=== PATIENT | female | born 1940 | race Caucasian/White ===

== ENCOUNTER 2019-01-03 08:11 | Day surgery (SDC) | payer MEDICARE ==
[2019-01-03] MEDS ORDERED: Atenolol TAB* 50 MG ONE (09:11)
[2019-01-03] MEDS ORDERED: Midazolam* 1 MG/ML 5 ML VIAL (5 MG) ONE (10:12)
[2019-01-03] MEDS ORDERED: Neomycin/Polymy/Dex OPTH.SUSP* MAXITROL 0.1% 5 ML ONE (12:56)
[2019-01-03] MEDS ORDERED: Lidocaine 2% w/ EPI 1:200,000* 20 ML SDV VIAL ONE (12:56)
[2019-01-03] MEDS ORDERED: Cyclopentolate 1% OPTH.SOL* 2 ML BTL ONE (12:56)
[2019-01-03] MEDS ORDERED: Phenylephrine OPHTH SOL 2.5%* 2 ML ONE (12:56)
[2019-01-03] MEDS ORDERED: acetaZOLAMIDE TAB* 250 MG ONE (12:56)
[2019-01-03] MEDS ORDERED: Lidocaine 1% MPF ** 5 ML VIAL ONE (12:56)
[2019-01-03] MEDS ORDERED: Proparacaine 0.5% OPHTH.SOL* 15 ML BTL ONE (12:57)
[2019-01-03] MEDS ORDERED: Ketorolac 0.5% OPHTH (NF) 0.5 % 5 ML BTL ONE (12:57)
[2019-01-03] MEDS ORDERED: Povidone Iodine 5% OPTH* 30 ML BTL ONE (12:57)
--- NOTE | 2019-01-03 15:56 | OP ---
DATE OF OPERATION: 01/03/19 - [facility] DATE OF : 38 SURGEON: Jeff Cardona M.D. PREOPERATIVE DIAGNOSIS: Cataract, left eye. POSTOPERATIVE DIAGNOSIS: Cataract, left eye. OPERATIVE PROCEDURE: Extracapsular cataract extraction with intraocular lens implant left eye. DESCRIPTION OF PROCEDURE: The patient was brought to the operating room after being given 1/2% Alcaine with epinephrine drops in the preoperative area. The eye was prepped and draped in the usual sterile fashion. Sterile drape and eyelid speculum were placed. Again, topical 1/2% Alcaine with epinephrine was given. A paracentesis incision was made at the 3 o'clock position with the No. 75 blade. Clear cornea incision 2.2 x 2.2-mm was created at the 6 o'clock position starting at the anterior limbus using the 2.2-mm keratome. The anterior chamber was irrigated with 0.4 mL of 1% non-preservative intracameral lidocaine and filled with DisCoVisc. A capsulorrhexis was completed using the cystotome and the Utrata forceps. Hydrodissection was performed with balanced salt solution. The lens nucleus was removed with the Phacoemulsification handpiece without incident. Cortex was removed with the irrigation-aspiration handpiece. The capsular bag was re-inflated using DisCoVisc and an [id number] 19.5 implant was inserted with the shooter oriented to the 175 degree meridian. Horizontal reference pritchard were made with the patient in a seated position in the preoperative area. All measurements were confirmed with the ORA. The irrigation-aspiration handpiece was used to remove all residual DisCoVisc. The eye was refilled with balanced salt solution and the wound checked and found to be watertight. Topical Maxitrol drops were given. [id number]/[facility] #: [id number] [facility]
[2019-01-09] MEDS ORDERED: Buffered Lidocaine 1% SYRIN* 1 ML/SYRINGE INTRADERM ONE (11:11)
[2019-01-10] MEDS ORDERED: Acetaminophen TAB* 325 MG PO PRN (05:00)
[2019-01-10 11:36] VITALS: BP 140/63
== END 2019-01-03 11:20 | disposition home or self-care (01) ==
LOC: OREAST 08:11
PROVIDERS: ATTEND Specialist
DX: H25.812 Combined forms of age-related cataract, left eye (principal); H43.813 Vitreous degeneration, bilateral; I10 Essential (primary) hypertension; M15.9 Polyosteoarthritis, unspecified; I69.320 Aphasia following cerebral infarction; Z79.82 Long term (current) use of aspirin
CPT/HCPCS: A9270-GY; J2250; V2632; V2787

== ENCOUNTER 2019-01-10 08:07 | Day surgery (SDC) | payer MEDICARE ==
[2019-01-03 11:24] VITALS: BP 138/60
[~2019-01-10 08:07] MED LIST: Acetaminophen TAB* 325 MG PO PRN; Buffered Lidocaine 1% SYRIN* 1 ML/SYRINGE INTRADERM ONE; Cyclopentolate 1% OPTH.SOL* 2 ML BTL ONE; Ketorolac 0.5% OPHTH (NF) 0.5 % 5 ML BTL ONE; Lidocaine 1% MPF ** 5 ML VIAL ONE; Lidocaine 2% w/ EPI 1:200,000* 20 ML SDV VIAL ONE; Neomycin/Polymy/Dex OPTH.SUSP* MAXITROL 0.1% 5 ML ONE; Phenylephrine OPHTH SOL 2.5%* 2 ML ONE; Povidone Iodine 5% OPTH* 30 ML BTL ONE; Proparacaine 0.5% OPHTH.SOL* 15 ML BTL ONE; acetaZOLAMIDE TAB* 250 MG ONE
[2019-01-10] MEDS ORDERED: Midazolam* 1 MG/ML 2 ML VIAL (2 MG) ONE (09:53)
--- NOTE | 2019-01-10 13:15 | OP ---
DATE OF OPERATION: 01/10/19 [facility] DATE OF : 38 SURGEON: Jeff Cardona M.D. PREOPERATIVE DIAGNOSIS: Cataract, right eye. POSTOPERATIVE DIAGNOSIS: Cataract, right eye. OPERATIVE PROCEDURE: Extracapsular cataract extraction with intraocular lens implant, right eye. DESCRIPTION OF PROCEDURE: The patient was brought to the operating room after being given 1/2% Alcaine with epinephrine drops in the preoperative area. The eye was prepped and draped in the usual sterile fashion. Sterile drape and eyelid speculum were placed. Again, topical 1/2% Alcaine with epinephrine was given. A paracentesis incision was made at the 9 o'clock position with the No.75 blade. Clear cornea incision 2.2 x 2.2-mm was created at the 12 o'clock position starting at the anterior limbus using the 2.2-mm keratome. The anterior chamber was irrigated with 0.4 mL of 1% non-preservative intracameral lidocaine and filled with DisCoVisc. A capsulorrhexis was completed using the cystotome and the Utrata forceps. Hydrodissection was performed with balanced salt solution. The lens nucleus was removed with the Phacoemulsification handpiece without incident. Cortex was removed with the irrigation-aspiration handpiece. The capsular bag was re-inflated using DisCoVisc and an [id number] 18.5 implant was inserted with the shooter. All measurements confirmed with ORA. The irrigation-aspiration handpiece was used to remove all residual DisCoVisc. The eye was refilled with balanced salt solution and the wound checked and found to be watertight. Topical Maxitrol drops were given. [id number]/[facility] #: [id number] [facility]
== END 2019-01-10 10:56 | disposition home or self-care (01) ==
LOC: OREAST 08:07
PROVIDERS: ATTEND Specialist
DX: H25.811 Combined forms of age-related cataract, right eye (principal); I10 Essential (primary) hypertension; M19.90 Unspecified osteoarthritis, unspecified site; E78.5 Hyperlipidemia, unspecified; I69.320 Aphasia following cerebral infarction; I69.310 Attention and concentration deficit following cerebral infarction; Z88.0 Allergy status to penicillin; Z88.1 Allergy status to other antibiotic agents
CPT/HCPCS: A9270-GY; J2250; V2632; V2787

== ENCOUNTER 2019-04-24 21:16 | Emergency (ER) | payer MEDICARE ==
--- NOTE | 2019-04-24 22:00 | ED ---
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 THIS IS A LEVEL 5 CAVEAT DUE TO PT's APHASIA. Patient was watching TV when she felt nausea, shortness of breath, and heart palpitations. Patient denies any pain, visual changes, unusual facial sensation , or current shortness of breath. Patient reports having similar symptoms last year in May during TIA episode. - History Of Current Complaint Chief Complaint: EDGeneral Stated Complaint: GENERAL ILLNESS PER EMS Time Seen by Provider: 04/24/19 21:49 Hx Obtained From: Patient Hx From Patient Unobtainable Due To: Other - Aphasia Onset/Duration: Unknown, Resolved, Gradually Timing: Constant Severity Initially: Moderate Severity Currently: Mild Character: Confusion Aggravating Factor(s): Unknown Alleviating Factor(s): Unknown Associated Signs And Symptoms: Positive: Nausea Related History: Similar Episode/Diagnosed As: - Last May, diagnosed as TIA. - Allergies/Home Medications Allergies/Adverse Reactions: Allergies Allergy/AdvReac Type Severity Reaction Status Date / Time Penicillins Allergy Unknown Hives Verified 01/10/19 08:21 doxycycline Allergy Nausea Verified 01/10/19 08:21 PMH/Surg Hx/FS Hx/Imm Hx Endocrine/Hematology History: Denies: Hx Bone Marrow Disease, Hx Diabetes, Hx Sickle Cell Disease, Hx Thyroid Disease, Hx Anemia Cardiovascular History: Reports: Hx Coronary Artery Disease - HDL-TAKES ATORVASTATIN, Hx Hypertension - ON MEDS Denies: Hx Pacemaker/ICD, Other Cardiovascular Problems/Disorders Respiratory History: Denies: Other Respiratory Problems/Disorders GI History: Denies: Hx Gastroesophageal Reflux Disease, Other GI Disorders History: Denies: Hx Kidney Infection, Hx Kidney Stones, Hx Renal Disease, Other Problems/Disorders Musculoskeletal History: Reports: Hx Arthritis - FINGERS AND SPINE Denies: Hx Bursitis, Hx Tendonitis, Other Musculoskeletal History Sensory History: Reports: Hx Cataracts - BILATERAL-SURGERY SCHEDULED, Hx Contacts or Glasses - GLASSES TO READ Denies: Hx Glaucoma, Hx Hearing Aid Opthamlomology History: Reports: Hx Cataracts - BILATERAL-SURGERY SCHEDULED, Hx Contacts or Glasses - GLASSES TO READ Denies: Hx Glaucoma Psychiatric History: Denies: Hx Panic Disorder - Cancer History Cancer Type, Location and Year: skin cancer, uterin ca Hx Chemotherapy: No Hx Radiation Therapy: No - Surgical History Surgery Procedure, Year, and Place: TUBALIGATION 1981,HYSTERECTOMY 2004,RIGHT BIOPSY, right shoulder squamous cell removed. SQUAMOUS CELL REMOVED DIFFERENT SPOTS ON BODY. Hx Anesthesia Reactions: No Infectious Disease History: No Infectious Disease History: Denies: Traveled Outside the [place] in Last 30 Days - Family History Known Family History: Positive: Other - CVA mother and grandmother - Social History Alcohol Use: None Substance Use Type: Reports: None Smoking Status (MU): Never Smoked Tobacco - Additional Comments History Additional Comments: PMHx: TIA Aphasia HTN Cataract surgery Tubal hysterectomy Squamous cells in right shoulder removed Skin cancer urinary cancer Review of Systems - ROS Summary Review of Systems Summary: Home Medications Medication Instructions Recorded Confirmed Type Acyclovir TAB* 400 mg PO QAM PRN 06/14/13 01/03/19 History Calcium Carbonate/Vitamin D3 1 tab PO QAM 06/14/13 01/03/19 History [Calcium 600 + Vit D Tablet] Losartan-Hctz 50-12.5 mg Tab 1 tab PO QAM 06/14/13 01/03/19 History Vitamin C TAB* 1 tab PO QAM 06/14/13 01/03/19 History atenoloL [Atenolol] 50 mg PO QAM 06/14/13 01/03/19 History Atorvastatin* [Lipitor 40 MG*] 40 mg PO 2100 #30 tab 06/04/18 01/03/19 Rx Aspirin TAB* [Aspirin 325 MG TAB*] 325 mg PO QAM 12/28/18 01/03/19 History Biotene 1,000 mg PO QAM 12/28/18 01/03/19 History Glucosamn/[place]/C/Mn/[place] 1 tab PO QAM 12/28/18 01/03/19 History [[facility] Glucosamine [place] Cplt] Lysine [l-Lysine] 500 mg pe PO QPM 12/28/18 01/03/19 History [place]-3 Fatty Acids/Fish Oil [Fish 1 each PO QAM 12/28/18 01/03/19 History Oil 1,000 mg Softgel] Vit A/Vit C/Vit E/Zinc/Copper 1 cap PO QAM 12/28/18 01/03/19 History [Vision Formula Softgel] Negative: Fever Negative: Blurred Vision Positive: Palpitations Positive: Shortness Of Breath Positive: Nausea Negative: Paresthesia, Numbness All Other Systems Reviewed And Are Negative: No Physical Exam - Summary Physical Exam Summary: General: Well-developed, Well-nourished elderly female. No acute distress. HEENT: Normocephalic, Atraumatic. Eyes: Conjuctiva normal, PERRL. Ears: TMs within normal limits. Nares: (-) discharge, (-) erythema. Oropharynx: Clear, mucous membranes moist, (-) exudates. Neck: Soft, FROM, (-) lymphadenopathy, (-) thyromegaly, (-) JVD. Cardiovascular: Normal sinus rhythm, (-) murmur. Lungs: Clear to auscultation bilaterally (-) wheezes, (-) rales, (-) rhonchi. Abdomen: Soft, non-tender, non-distended, (-) organomegaly, normal bowel sounds. Back: (-) CVA tenderness Extremities: No edema. Skin: Warm, dry, (-) rash. Neuro: Alert and oriented x3. Aphasic. Psychiatric: Mood normal, affect flat. Triage Information Reviewed: Yes Vital Signs On Initial Exam: Initial Vitals Temp Pulse Resp BP Pulse Ox 98 F 62 18 159/71 98 04/24/19 21:24 04/24/19 21:24 04/24/19 21:24 04/24/19 21:24 04/24/19 21:24 Vital Signs Reviewed: Yes Completion Of Physical Exam Limited Due To: Level 5 Procedures - Sedation Patient Received Moderate/Deep Sedation with Procedure: No Diagnostics - Vital Signs Vital Signs Temp Pulse Resp BP Pulse Ox 04/24/19 21:24 98 F 62 18 159/71 98 - Laboratory Result Diagrams: 04/24/19 22:59 04/24/19 22:59 Lab Statement: Any lab studies that have been ordered have been reviewed, and results considered in the medical decision making process. - Radiology CXR Radiology Interpretation Completed By: ED Physician Summary of Radiographic Findings: No infiltrate. No pleural effusion. Pending official read. Dr. Hull has reviewed and interpreted this scan. - EKG 0020 Cardiac Rate: NL - 69 bpm EKG Rhythm: Sinus Rhythm ST Segment: Normal Ectopy: None Summary of EKG Findings: EKG at 0020 reveals normal sinus rhythm with rate of 69 BPM, no acute changes, no ischemic changes. This EKG was reviewed and interpreted by Dr. Hull. Altered Mental Statu Course/Dx - Diagnoses Provider Diagnoses: Heart palpitations Discharge ED - Sign-Out/Discharge Documenting (check all that apply): Patient Departure - discharge home - Discharge Plan Condition: Stable Disposition: HOME Patient Education Materials: Heart Palpitations (ED) Referrals: Chriss Hendrickson MD [Primary Care Provider] - Additional Instructions: Follow up with your primary care provider in 2-3 days. Return to the Emergency Department if you experience new or worsened symptoms. - Attestation Statements Document Initiated by Scribe: Yes Documenting Scribe: Alonso Worthington Provider For Whom Scribe is Documenting (Include Credential): Carmen Hull MD Scribe Attestation: Alonso Cooper, scribed for Carmen Hull MD on 04/25/19 at 0118. Status of Scribe Document: Ready
[2019-04-24] MEDS ORDERED: NS 0.9% 1000 ML** 1,000 ML IV ONE (22:32)
[2019-04-24 23:05] LABS: ABS Basophils 0.1 10^3/ul (0-0.2); ABS Lymphocytes 1.1 10^3/ul (1.0-4.8); ABS Monocytes 0.5 10^3/ul (0-0.8); ABS Neutrophils 7.1 10^3/ul (1.5-7.7); Eosinophil % 0.6 %; Hematocrit 35 % (35-47); Lymphocyte % 12.2 %; Mean Corpuscular HGB Conc 34 g/dL (31-36); Mean Corpuscular Hemoglobin 32 pg (27-31); Mean Corpuscular Volume 94 fL (80-97); Mean Platelet Volume 9.3 fL (7.4-10.4); Platelet Count 155 10^3/uL (150-450); Red Blood Count 3.79 10^6 /uL (3.70-4.87); Red Cell Distribution Width 13 % (10-15); White Blood Count 8.8 10^3/uL (3.5-10.8)
[2019-04-24 23:20] LABS: Influenza A Molecular NEGATIVE (Negative); Influenza B Molecular NEGATIVE (Negative)
[2019-04-24 23:23] LABS: ALT 12 U/L (7-52); AST 19 U/L (13-39); Albumin 3.9 g/dL (3.2-5.2); Albumin/Globulin Ratio 1.6 (1-3); Alkaline Phosphatase 93 U/L (34-104); Anion Gap 6 mmol/L (2-11); BUN/Creatinine Ratio 29.2 (8-20); Blood Urea Nitrogen 21 mg/dL (6-24); C Reactive Protein < 1.00 mg/L (<8.01); CO2 Carbon Dioxide 30 mmol/L (22-32); Calcium 9.1 mg/dL (8.6-10.3); Chloride 100 mmol/L (101-111); EGFR African American 94.5 (>60); EGFR Non-African American 78.1 (>60); Globulin 2.5 g/dL (2-4); Glucose 165 mg/dL (70-100); Potassium 3.4 mmol/L (3.5-5.0); Sodium 136 mmol/L (135-145); Total Protein 6.4 g/dL (6.4-8.9)
[2019-04-25 00:22] LABS: Erythrocyte Sed Rate 8 mm/Hr (0-29)
[2019-04-25 00:44] LABS: Troponin I 0.01 ng/mL (<0.03)
[2019-04-25 01:06] LABS: Urine Appearance Cloudy; Urine Bilirubin Negative (Negative); Urine Blood Negative (Negative); Urine Color Yellow; Urine Glucose Negative (Negative); Urine Ketones Negative (Negative); Urine Nitrite Negative (Negative); Urine Protein Negative (Negative); Urine Specific Gravity 1.011 (1.010-1.030); Urine Urobilinogen Negative (Negative)
[2019-04-25 02:38] VITALS: BP 158/91
== END 2019-04-25 02:23 | disposition home or self-care (01) ==
LOC: ED 21:16
DX: R06.02 Shortness of breath (principal); R11.0 Nausea; I10 Essential (primary) hypertension; I25.10 Atherosclerotic heart disease of native coronary artery without angina pectoris; R47.01 Aphasia; Z85.828 Personal history of other malignant neoplasm of skin; Z86.73 Personal history of transient ischemic attack (TIA), and cerebral infarction without residual deficits
CPT/HCPCS: 36415; 71045; 80053; 81003; 83605; 84484; 85025; 85652; 86140; 93005; 96360; 99284

== ENCOUNTER 2020-03-11 00:03 | Observation (INO) ==
[2020-03-11 01:12] LABS: ABS Lymphocytes 1.1 10^3/ul (1.0-4.8); ABS Monocytes 0.7 10^3/ul (0-0.8); ABS Neutrophils 7.8 10^3/ul (1.5-7.7); Eosinophil % 0.5 %; Hematocrit 39 % (35-47); Hemoglobin 13.3 g/dL (12.0-16.0); Lymphocyte % 11.4 %; Mean Corpuscular HGB Conc 34 g/dL (31-36); Mean Corpuscular Hemoglobin 32 pg (27-31); Mean Corpuscular Volume 95 fL (80-97); Mean Platelet Volume 9.4 fL (7.4-10.4); Platelet Count 188 10^3/uL (150-450); Red Cell Distribution Width 13 % (10-15); White Blood Count 9.7 10^3/uL (3.5-10.8)
[2020-03-11 01:20] LABS: Albumin 4.3 g/dL (3.2-5.2); Calcium 9.6 mg/dL (8.6-10.3); Magnesium 1.7 mg/dL (1.9-2.7); Potassium 3.6 mmol/L (3.5-5.0); Total Bilirubin 0.7 mg/dL (0.2-1.0)
[2020-03-11 01:26] LABS: Albumin/Globulin Ratio 1.4 (1-3); BUN/Creatinine Ratio 23.3 (8-20); EGFR African American 76.8 (>60); EGFR Non-African American 63.5 (>60); Globulin 3.1 g/dL (2-4); Total Protein 7.4 g/dL (6.4-8.9)
[2020-03-11 01:48] LABS: TSH Ultra Thyroid Stim Horm 5.43 mcIU/mL (0.34-5.60)
[2020-03-11 02:59] LABS: Urine Appearance Clear; Urine Bilirubin Negative (Negative); Urine Blood Negative (Negative); Urine Color Yellow; Urine Glucose Negative (Negative); Urine Ketones Negative (Negative); Urine Nitrite Negative (Negative); Urine Protein Negative (Negative); Urine Specific Gravity 1.015 (1.010-1.030); Urine Urobilinogen Negative (Negative)
[2020-03-11 03:05] LABS: Urine Bacteria Absent (Absent); Urine Red Blood Cell Trace(0-2/hpf) (Absent); Urine Squamous Epithelial Cell Present (Absent); Urine White Blood Cell Trace(0-5/hpf) (Absent)
[2020-03-11] MEDS ORDERED: Magnesium Sulfate 2 gm BAG 2 GM/50 ML BAG IVPB ONE (03:25)
[2020-03-11] MEDS ORDERED: NS 0.9% 1000 ml BAG 1,000 ML IV SCH (03:30)
[2020-03-11] MEDS: Heparin 5000 UNITS/ML 1 mL VIAL SUBCUT SCH ×3 (11:05→21:37)
[2020-03-12] MEDS: Heparin 5000 UNITS/ML 1 mL VIAL SUBCUT SCH ×2 (07:28→15:14)
[2020-03-12 11:33] VITALS: BP 171/84
== END 2020-03-12 15:50 | disposition home or self-care (01) ==
LOC: MEDTELE 00:03 → ED 00:03 → MEDTELE 10:28
PROVIDERS: ADMIT Hospitalist; ATTEND Student in an Organized Health Care Education/Training Program

== ENCOUNTER 2020-03-21 20:20 | Inpatient (IN) ==
[2020-03-21] MEDS ORDERED: oxyCODONE/Acetamin 5/325 mg TAB PO ONE (21:13)
[2020-03-21 22:04] LABS: ABS Lymphocytes 0.9 10^3/ul (1.0-4.8); ABS Monocytes 0.6 10^3/ul (0-0.8); ABS Neutrophils 7.6 10^3/ul (1.5-7.7); Eosinophil % 0.3 %; Hematocrit 31 % (35-47); Hemoglobin 10.7 g/dL (12.0-16.0); Mean Corpuscular HGB Conc 35 g/dL (31-36); Mean Corpuscular Hemoglobin 33 pg (27-31); Mean Corpuscular Volume 94 fL (80-97); Mean Platelet Volume 8.9 fL (7.4-10.4); Platelet Count 198 10^3/uL (150-450); Red Blood Count 3.31 10^6 /uL (3.70-4.87); Red Cell Distribution Width 13 % (10-15); White Blood Count 9.1 10^3/uL (3.5-10.8)
[2020-03-21 22:11] LABS: INR 1.16 (0.82-1.09)
[2020-03-21 22:19] LABS: Albumin 3.8 g/dL (3.2-5.2); Albumin/Globulin Ratio 1.5 (1-3); BUN/Creatinine Ratio 27.3 (8-20); Calcium 9.2 mg/dL (8.6-10.3); EGFR African American 104.3 (>60); EGFR Non-African American 86.2 (>60); Globulin 2.6 g/dL (2-4); Potassium 3.9 mmol/L (3.5-5.0); Total Bilirubin 0.4 mg/dL (0.2-1.0); Total Protein 6.4 g/dL (6.4-8.9)
[2020-03-22] MEDS ORDERED: Morphine 2 MG/ML SYRINGE IV PRN (01:20)
[2020-03-22] MEDS ORDERED: Enoxaparin 40 MG/0.4 ML SYR SUBCUT SCH (02:00)
[2020-03-22] MEDS: Enoxaparin 40 MG/0.4 ML SYR SUBCUT SCH (09:47)
[2020-03-22] MEDS: oxyCODONE/Acetamin 5/325 mg TAB PO PRN (09:50)
[2020-03-22] MEDS: Calcium/Vitamin D TAB 250/125 TAB PO SCH (09:50)
[2020-03-22 18:09] LABS: Urine Appearance Cloudy; Urine Bilirubin Negative (Negative); Urine Blood Negative (Negative); Urine Color Yellow; Urine Glucose Negative (Negative); Urine Ketones Negative (Negative); Urine Nitrite Negative (Negative); Urine Protein Negative (Negative); Urine Specific Gravity 1.026 (1.010-1.030); Urine Urobilinogen Negative (Negative)
[2020-03-23 05:25] LABS: ABS Eosinophils 0.1 10^3/ul (0-0.6); ABS Monocytes 0.6 10^3/ul (0-0.8); Eosinophil % 0.9 %; Hematocrit 28 % (35-47); Hemoglobin 9.8 g/dL (12.0-16.0); Lymphocyte % 15.3 %; Mean Corpuscular HGB Conc 35 g/dL (31-36); Mean Corpuscular Hemoglobin 33 pg (27-31); Mean Corpuscular Volume 94 fL (80-97); Mean Platelet Volume 8.5 fL (7.4-10.4); Platelet Count 159 10^3/uL (150-450); Red Blood Count 2.98 10^6 /uL (3.70-4.87); Red Cell Distribution Width 13 % (10-15); White Blood Count 6.6 10^3/uL (3.5-10.8)
[2020-03-23 05:40] LABS: BUN/Creatinine Ratio 30.9 (8-20); Calcium 8.5 mg/dL (8.6-10.3); EGFR African American 128.7 (>60); EGFR Non-African American 106.3 (>60); Potassium 3.9 mmol/L (3.5-5.0)
[2020-03-23] MEDS: oxyCODONE/Acetamin 5/325 mg TAB PO PRN ×2 (09:20→21:00)
[2020-03-23] MEDS: Enoxaparin 40 MG/0.4 ML SYR SUBCUT SCH (09:21)
[2020-03-23] MEDS ORDERED: NS 0.9% 1000 ml BAG 1,000 ML IV SCH (10:45)
[2020-03-23 16:43] LABS: BUN/Creatinine Ratio 30.6 (8-20); Calcium 8.3 mg/dL (8.6-10.3); EGFR Non-African American 121.5 (>60)
[2020-03-24] MEDS: oxyCODONE/Acetamin 5/325 mg TAB PO PRN ×2 (03:30→23:59)
[2020-03-24] MEDS: Enoxaparin 40 MG/0.4 ML SYR SUBCUT SCH (08:37)
[2020-03-24] MEDS: Calcium/Vitamin D TAB 250/125 TAB PO SCH (08:39)
[2020-03-24] MEDS ORDERED: Magnesium Hydroxide LIQ 30 ML UDC PO PRN (12:39)
[2020-03-24 16:04] LABS: BUN/Creatinine Ratio 21.3 (8-20); Calcium 8.5 mg/dL (8.6-10.3); EGFR African American 154.3 (>60); EGFR Non-African American 127.5 (>60); Potassium 4.2 mmol/L (3.5-5.0)
[2020-03-25 05:57] LABS: ABS Eosinophils 0.1 10^3/ul (0-0.6); ABS Lymphocytes 1.2 10^3/ul (1.0-4.8); ABS Monocytes 0.5 10^3/ul (0-0.8); ABS Neutrophils 4.2 10^3/ul (1.5-7.7); Eosinophil % 1.6 %; Hematocrit 27 % (35-47); Hemoglobin 9.5 g/dL (12.0-16.0); Lymphocyte % 19.4 %; Mean Corpuscular HGB Conc 35 g/dL (31-36); Mean Corpuscular Hemoglobin 33 pg (27-31); Mean Corpuscular Volume 93 fL (80-97); Mean Platelet Volume 8.6 fL (7.4-10.4); Platelet Count 155 10^3/uL (150-450); Red Blood Count 2.88 10^6 /uL (3.70-4.87); Red Cell Distribution Width 13 % (10-15)
[2020-03-25 06:17] LABS: BUN/Creatinine Ratio 16.3 (8-20); Calcium 8.1 mg/dL (8.6-10.3); EGFR Non-African American 141.3 (>60); Potassium 4.2 mmol/L (3.5-5.0)
[2020-03-25] MEDS: Enoxaparin 40 MG/0.4 ML SYR SUBCUT SCH (10:09)
[2020-03-25] MEDS: Polyethylene Glycol 3350 17 GM PACKET PO SCH (10:09)
[2020-03-25] MEDS: oxyCODONE/Acetamin 5/325 mg TAB PO PRN (10:10)
[2020-03-25 16:46] LABS: BUN/Creatinine Ratio 19.6 (8-20); Calcium 8.4 mg/dL (8.6-10.3); EGFR African American 158.2 (>60); EGFR Non-African American 130.7 (>60); Potassium 3.9 mmol/L (3.5-5.0)
[2020-03-25 16:51] LABS: BUN/Creatinine Ratio 19.5 (8-20); Calcium 8.6 mg/dL (8.6-10.3); EGFR African American 180.6 (>60); EGFR Non-African American 149.3 (>60); Potassium 4.1 mmol/L (3.5-5.0)
[2020-03-25 21:10] LABS: BUN/Creatinine Ratio 20.8 (8-20); Calcium 8.4 mg/dL (8.6-10.3); EGFR African American 150.6 (>60); EGFR Non-African American 124.4 (>60); Potassium 4.3 mmol/L (3.5-5.0)
[2020-03-26 06:00] LABS: ABS Eosinophils 0.1 10^3/ul (0-0.6); ABS Lymphocytes 0.9 10^3/ul (1.0-4.8); ABS Monocytes 0.4 10^3/ul (0-0.8); ABS Neutrophils 3.6 10^3/ul (1.5-7.7); Eosinophil % 1.9 %; Hematocrit 27 % (35-47); Hemoglobin 9.4 g/dL (12.0-16.0); Lymphocyte % 17.9 %; Mean Corpuscular HGB Conc 35 g/dL (31-36); Mean Corpuscular Hemoglobin 32 pg (27-31); Mean Corpuscular Volume 93 fL (80-97); Mean Platelet Volume 8.7 fL (7.4-10.4); Nucleated Red Blood Cells % 0.1; Platelet Count 161 10^3/uL (150-450); Red Blood Count 2.91 10^6 /uL (3.70-4.87); Red Cell Distribution Width 13 % (10-15); White Blood Count 5.1 10^3/uL (3.5-10.8)
[2020-03-26 06:12] LABS: BUN/Creatinine Ratio 19.5 (8-20); Calcium 8.1 mg/dL (8.6-10.3); EGFR African American 180.6 (>60); EGFR Non-African American 149.3 (>60)
[2020-03-26 06:44] LABS: Potassium 4.2 mmol/L (3.5-5.0)
[2020-03-26] MEDS: Calcium/Vitamin D TAB 250/125 TAB PO SCH (07:39)
[2020-03-26] MEDS: Polyethylene Glycol 3350 17 GM PACKET PO SCH (07:41)
[2020-03-26] MEDS: Ondansetron 4 mg VIAL 2 MG/ML 2 ml VIAL IV PRN ×2 (11:47→21:06)
[2020-03-26] MEDS ORDERED: Al Hydrox/Mg Hydrox/Simet LIQ 30 ML UDC PO ONE (16:10)
[2020-03-26] MEDS: oxyCODONE/Acetamin 5/325 mg TAB PO PRN (20:46)
[2020-03-26] MEDS: Senna TAB 8.6 mg TAB PO PRN (20:48)
[2020-03-27 07:16] LABS: Calcium 8.2 mg/dL (8.6-10.3); Potassium 4.4 mmol/L (3.5-5.0)
[2020-03-27 07:22] LABS: EGFR African American 143.6 (>60); EGFR Non-African American 118.7 (>60)
[2020-03-27] MEDS: Polyethylene Glycol 3350 17 GM PACKET PO SCH (07:35)
[2020-03-27 07:39] LABS: TSH Ultra Thyroid Stim Horm 2.8 mcIU/mL (0.34-5.60)
[2020-03-27 08:23] LABS: ABS Eosinophils 0.1 10^3/ul (0-0.6); ABS Lymphocytes 0.8 10^3/ul (1.0-4.8); ABS Monocytes 0.4 10^3/ul (0-0.8); ABS Neutrophils 4.2 10^3/ul (1.5-7.7); Eosinophil % 1.4 %; Hematocrit 27 % (35-47); Hemoglobin 9.2 g/dL (12.0-16.0); Lymphocyte % 14.9 %; Mean Corpuscular HGB Conc 35 g/dL (31-36); Mean Corpuscular Hemoglobin 33 pg (27-31); Mean Corpuscular Volume 93 fL (80-97); Mean Platelet Volume 9.1 fL (7.4-10.4); Platelet Count 163 10^3/uL (150-450); Red Blood Count 2.84 10^6 /uL (3.70-4.87); Red Cell Distribution Width 13 % (10-15); White Blood Count 5.5 10^3/uL (3.5-10.8)
[2020-03-28] MEDS: Polyethylene Glycol 3350 17 GM PACKET PO SCH (09:15)
[2020-03-28] MEDS: Calcium/Vitamin D TAB 250/125 TAB PO SCH (09:15)
[2020-03-28] MEDS: Senna TAB 8.6 mg TAB PO PRN (22:00)
[2020-03-29 09:22] LABS: ABS Basophils 0.1 10^3/ul (0-0.2); ABS Eosinophils 0.1 10^3/ul (0-0.6); ABS Lymphocytes 0.9 10^3/ul (1.0-4.8); ABS Monocytes 0.4 10^3/ul (0-0.8); Eosinophil % 1.6 %; Hematocrit 30 % (35-47); Hemoglobin 10.2 g/dL (12.0-16.0); Lymphocyte % 16.7 %; Mean Corpuscular HGB Conc 34 g/dL (31-36); Mean Corpuscular Hemoglobin 32 pg (27-31); Mean Corpuscular Volume 94 fL (80-97); Mean Platelet Volume 7.9 fL (7.4-10.4); Nucleated Red Blood Cells % 0.1; Platelet Count 221 10^3/uL (150-450); Red Blood Count 3.16 10^6 /uL (3.70-4.87); Red Cell Distribution Width 13 % (10-15); White Blood Count 5.5 10^3/uL (3.5-10.8)
[2020-03-29 09:38] LABS: Calcium 8.8 mg/dL (8.6-10.3); EGFR African American 175.7 (>60); EGFR Non-African American 145.2 (>60); Potassium 3.8 mmol/L (3.5-5.0)
[2020-03-29] MEDS: Polyethylene Glycol 3350 17 GM PACKET PO SCH (10:59)
[2020-03-30 06:08] LABS: ABS Basophils 0.1 10^3/ul (0-0.2); ABS Eosinophils 0.1 10^3/ul (0-0.6); ABS Lymphocytes 1.2 10^3/ul (1.0-4.8); ABS Monocytes 0.5 10^3/ul (0-0.8); ABS Neutrophils 4.2 10^3/ul (1.5-7.7); Eosinophil % 1.8 %; Hematocrit 29 % (35-47); Lymphocyte % 20.5 %; Mean Corpuscular HGB Conc 34 g/dL (31-36); Mean Corpuscular Hemoglobin 32 pg (27-31); Mean Corpuscular Volume 95 fL (80-97); Mean Platelet Volume 8.5 fL (7.4-10.4); Platelet Count 153 10^3/uL (150-450); Red Cell Distribution Width 14 % (10-15)
[2020-03-30 06:30] LABS: CO2 Carbon Dioxide 27 mmol/L (22-32); Calcium 8.8 mg/dL (8.6-10.3); Chloride 94 mmol/L (101-111); Sodium 126 mmol/L (135-145)
[2020-03-30 06:35] LABS: Blood Urea Nitrogen 8 mg/dL (6-24); EGFR African American 175.7 (>60); EGFR Non-African American 145.2 (>60); Glucose 123 mg/dL (70-100)
[2020-03-30 06:41] LABS: Anion Gap 5 mmol/L (2-11)
[2020-03-30] MEDS: Calcium/Vitamin D TAB 250/125 TAB PO SCH (10:07)
[2020-03-30] MEDS: Polyethylene Glycol 3350 17 GM PACKET PO SCH (10:09)
[2020-03-31] MEDS: Polyethylene Glycol 3350 17 GM PACKET PO SCH (10:14)
[2020-04-01] MEDS: Calcium/Vitamin D TAB 250/125 TAB PO SCH (07:49)
[2020-04-01] MEDS: Polyethylene Glycol 3350 17 GM PACKET PO SCH (07:50)
[2020-04-01 10:55] LABS: BUN/Creatinine Ratio 30.4 (8-20); Calcium 8.9 mg/dL (8.6-10.3); EGFR African American 158.2 (>60); EGFR Non-African American 130.7 (>60); Potassium 3.8 mmol/L (3.5-5.0)
[2020-04-02] MEDS: Polyethylene Glycol 3350 17 GM PACKET PO SCH (08:28)
[2020-04-03] MEDS: Polyethylene Glycol 3350 17 GM PACKET PO SCH (08:00)
[2020-04-03] MEDS: Calcium/Vitamin D TAB 250/125 TAB PO SCH (08:00)
[2020-04-03 09:59] VITALS: BP 152/80
== END 2020-04-03 10:55 | DRG 563 ==
LOC: ED 20:20 → MEDTELE 03-22 01:01
PROVIDERS: ADMIT Hospitalist; ATTEND Hospitalist

== ENCOUNTER 2022-01-16 17:52 | Observation (INO) ==
[2022-01-16 18:25] LABS: ABS Lymphocytes 1.2 10^3/ul (1.0-4.8); ABS Monocytes 0.8 10^3/ul (0-0.8); ABS Neutrophils 4.3 10^3/ul (1.5-7.7); Eosinophil % 0.3 %; Hematocrit 34 % (35-47); Lymphocyte % 18.8 %; Mean Corpuscular HGB Conc 32 g/dL (31-36); Mean Corpuscular Hemoglobin 31 pg (27-31); Mean Corpuscular Volume 95 fL (80-97); Platelet Count 177 10^3/uL (150-450); Red Cell Distribution Width 13 % (10-15); White Blood Count 6.3 10^3/uL (3.5-10.8)
[2022-01-16 18:30] LABS: INR 1.16 (0.89-1.11)
[2022-01-16 19:07] LABS: Albumin 3.7 g/dL (3.2-5.2); Albumin/Globulin Ratio 1.3 (1-3); Calcium 8.7 mg/dL (8.6-10.3); Globulin 2.8 g/dL (2-4); Potassium 4.4 mmol/L (3.5-5.0); Total Bilirubin 0.6 mg/dL (0.2-1.0); Total Protein 6.5 g/dL (6.4-8.9); eGFR CKD-EPI 82.1 (>60)
[2022-01-16 19:46] LABS: High Sensitivity Troponin 1 Hr 6 pg/mL (<15)
[2022-01-16] MEDS ORDERED: Dexamethasone IV 4 MG/ML VIAL 1 ml VIAL IV SLOW PU ONE (21:38)
[2022-01-16] MEDS ORDERED: Magnesium Hydroxide LIQ 30 ML UDC PO PRN (22:57)
[2022-01-16] MEDS ORDERED: Enoxaparin 40 MG/0.4 ML SYR SUBCUT SCH (23:00)
[2022-01-16] MEDS ORDERED: Polyethylene Glycol 3350 17 GM PACKET PO PRN (23:02)
[2022-01-17 01:21] LABS: C Reactive Protein 72.85 mg/L (<8.01)
[2022-01-17 06:48] LABS: ABS Lymphocytes 0.7 10^3/ul (1.0-4.8); ABS Monocytes 0.1 10^3/ul (0-0.8); ABS Neutrophils 4.6 10^3/ul (1.5-7.7); Hematocrit 33 % (35-47); Hemoglobin 11.2 g/dL (12.0-16.0); Lymphocyte % 12.3 %; Mean Corpuscular HGB Conc 34 g/dL (31-36); Mean Corpuscular Hemoglobin 32 pg (27-31); Mean Corpuscular Volume 94 fL (80-97); Mean Platelet Volume 8.3 fL (7.4-10.4); Nucleated Red Blood Cells % 0.1; Platelet Count 178 10^3/uL (150-450); Red Blood Count 3.52 10^6 /uL (3.70-4.87); Red Cell Distribution Width 13 % (10-15); White Blood Count 5.4 10^3/uL (3.5-10.8)
[2022-01-17 06:59] LABS: Albumin 3.5 g/dL (3.2-5.2); Albumin/Globulin Ratio 1.3 (1-3); Calcium 8.9 mg/dL (8.6-10.3); Globulin 2.8 g/dL (2-4); Potassium 4.4 mmol/L (3.5-5.0); Total Bilirubin 0.4 mg/dL (0.2-1.0); Total Protein 6.3 g/dL (6.4-8.9); eGFR CKD-EPI 93.1 (>60)
[2022-01-17] MEDS: CLINDAMYCIN 300 MG PO SCH ×2 (09:23→14:44)
[2022-01-17 13:10] VITALS: BP 111/44
== END 2022-01-17 16:00 ==
LOC: ED 17:52 → EDHOLD 17:52 → SUATTDRO 22:57 → EDHOLD 01-17 00:05 → MED 01-17 00:59
PROVIDERS: ADMIT Internal Medicine; ATTEND Family Medicine

== ENCOUNTER 2024-02-27 08:45 | Inpatient (IN) ==
[2024-02-27 09:44] LABS: ABS Lymphocytes 0.7 10^3/uL (1.0-4.8); ABS Monocytes 0.6 10^3/uL (0.0-0.9); ABS Neutrophils 5.8 10^3/uL (1.5-7.6); Eosinophil % 0.2 %; Hematocrit 32.4 % (35-45); Hemoglobin 10.8 g/dL (11.5-14.3); Lymphocyte % 9.6 %; Mean Corpuscular Hemoglobin 30.9 pg (27-33); Mean Corpuscular Hgb Conc 33.2 g/dL (31-36); Mean Corpuscular Volume 93.1 fL (80-97); Mean Platelet Volume 9.3 fL (7.5-11.2); Platelet Count 170 10^3/uL (150-450); Red Blood Count 3.48 10^6/uL (3.63-4.92); Red Cell Distribution Width 13.4 % (12-17); White Blood Count 7.2 10^3/uL (3.8-11.8)
[2024-02-27] MEDS: Acetaminophen IV 1 GM/100ML 1,000 MG/100 ML BAG IV ONE (09:53)
[2024-02-27 09:54] LABS: Activated Partial Thrombo Time 30.3 seconds (26.0-38.0); INR 1.23 (0.85-1.14)
[2024-02-27] MEDS: Azithromycin 500 mg/250 ml NS 500 MG/250 ML BAG IVPB ONE ×2 (09:59→10:18)
[2024-02-27 10:09] LABS: Albumin 4.1 g/dL (3.2-5.2); Albumin/Globulin Ratio 1.6 (1-3); C Reactive Protein 23.4 mg/L (<8.01); Calcium 9.2 mg/dL (8.6-10.3); Creatinine, Serum 0.66 mg/dL (0.51-0.95); Globulin 2.6 g/dL (2-4); Total Bilirubin 0.6 mg/dL (0.2-1.0); Total Protein 6.7 g/dL (6.4-8.9); eGFR CKD-EPI 86.4 (>60)
[2024-02-27] MEDS: cefTRIAXone 1 gm/50 mL D5W 1 GM/50 ML BAG IV ONE (10:18)
[2024-02-27 10:55] LABS: High Sensitivity Troponin 1 Hr 10 pg/mL (<15)
[2024-02-27] MEDS ORDERED: Ondansetron 4 mg VIAL 2 MG/ML 2 ml VIAL IV PRN (12:31)
[2024-02-27] MEDS ORDERED: Morphine 2 MG/ML SYRINGE IV PRN (12:31)
[2024-02-27] MEDS ORDERED: Senna TAB 8.6 mg TAB PO PRN (12:31)
[2024-02-27] MEDS ORDERED: Morphine ORAL CONCENTRATE 5 MG/0.25 ML ORAL.SYRIN PO PRN (12:31)
[2024-02-27] MEDS ORDERED: Lorazepam PYXIS KEY PRN (12:48)
[2024-02-28] MEDS: cefTRIAXone 1 gm/50 mL D5W 1 GM/50 ML BAG IV SCH (10:48)
[2024-02-28] MEDS: Azithromycin 500 mg/250 ml NS 500 MG/250 ML BAG IVPB SCH (12:00)
[2024-03-01] MEDS: LORazepam 2 mg VIAL 1 ml IV PUSH PRN (03:58)
[2024-03-03] MEDS: Polyethylene Glycol 3350 17 GM PACKET PO PRN (11:59)
[2024-03-05 03:09] LABS: Rapid COVID-19 Molecular Undetected (Undetected)
[2024-03-05 08:10] VITALS: BP 147/86
== END 2024-03-05 09:00 | DRG 194 ==
LOC: ED 08:45 → EDHOLD 08:45 → SSU 18:07 → SUATTDRO 02-28 12:15 → MED 03-02 21:32
PROVIDERS: ADMIT Hospitalist; ATTEND Internal Medicine